=== PATIENT | male | born 1995 | race Asian ===

== ENCOUNTER 2017-03-07 20:28 | Emergency (ER) | payer OTHER ==
[~2017-03-07] VITALS: Ht 177.8 cm; Wt 78.1 kg
[2017-03-07 20:31] VITALS: TEMP 37.1; Ht 177.8 cm; Wt 78.1 kg
--- NOTE | 2017-03-07 20:42 | EMERGENCY ROOM VISIT NOTE ---
History First contact with patient: 20:34 Chief Complaint: FEVER Stated Complaint: FEVER History of Present Illness The patient is a 22 year old male who presents to the Emergency Room with complaints of fever, diarrhea, nasal congestion, cough. His fever started 4 days ago, worse at night, associated with nasal congestion, cough (sometimes productive of yellow sputum). He denies any chest pain, abdominal pain, nausea, vomiting or shortness of breath. He is managing to eat and drink well but admits to some loss of appetite. His major concern for coming to the ER today is that fever keeps coming back. His diarrhea has been improving but His mother is a physician/surgeon in [place] and advised him to take cefuroxime (for the fever, from [place]) and ioxoprofen (from [place]), unknown doses. Came back from [place] in October, no other travel overseas. Eating just soup for the past few days as advised by his mother. Review of Systems All other systems were reviewed and otherwise negative other than HPI Past Medical/Surgical History ?emphysema Family History Diabetes Heart Disease High blood pressure Social History Smoking Status: Current Every Day Smoker (2-3 cigarettes/day, 3 years) Alcohol Use: occasionally (last weekend) Drug Use: none Housing Status: lives alone Occupation Status: [employer] student ([employer] Current/Historical Medications Scheduled Biotin (Biotin 5000), 5 MG PO DAILY Oseltamivir (Tamiflu), 75 MG PO BID Physical Exam Vital Signs Date Time Temp Pulse Resp B/P (MAP) Pulse Ox O2 Delivery O2 Flow Rate FiO2 03/07/17 20:31 37.1 97 16 138/83 98 Room Air Physical Exam General Appearance: WD/WN, no apparent distress Head: normocephalic, atraumatic Eyes: normal inspection (pupils equal), EOMI ENT: normal ENT inspection, hearing grossly normal, TMs normal, pharynx normal Neck: supple, no JVD Respiratory/Chest: chest non-tender, lungs clear, normal breath sounds, no respiratory distress, no accessory muscle use Cardiovascular: regular rate, rhythm, no edema, no murmur, normal peripheral pulses Abdomen / GI: normal bowel sounds, non tender, soft Back: no CVA tenderness Extremities: no calf tenderness, normal capillary refill, no pedal edema 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 FINDINGS: The lungs are clear. Cardiac silhouette is normal in size. No pleural effusions. No pneumothorax. IMPRESSION: No acute process. Electronically signed by: Timoteo Rizzo M.D. 03/07/2017 9:33 PM Dictated Date/Time: 03/07/2017 9:30 PM Laboratory Results 03/07/17 21:05 Red Blood Count 5.61, Mean Corpuscular Volume 84.7, Mean Corpuscular Hemoglobin 30.3, Mean Corpuscular Hemoglobin Concent 35.8, Mean Platelet Volume 9.5, Neutrophils (%) (Auto) 44.1, Lymphocytes (%) (Auto) 39.3, Monocytes (%) (Auto) 15.2, Eosinophils (%) (Auto) 1.0, Basophils (%) (Auto) 0.2, Neutrophils # (Auto ) 1.79, Lymphocytes # (Auto) 1.60, Monocytes # (Auto) 0.62, Eosinophils # (Auto ) 0.04, Basophils # (Auto) 0.01 03/07/17 21:05 Test 03/07/17 21:05 White Blood Count 4.07 K/uL (4.8-10.8) Red Blood Count 5.61 M/uL (4.7-6.1) Hemoglobin 17.0 g/dL (14.0-18.0) Hematocrit 47.5 % (42-52) Mean Corpuscular Volume 84.7 fL (80-100) Mean Corpuscular Hemoglobin 30.3 pg (25-34) Mean Corpuscular Hemoglobin Concent 35.8 g/dl (32-36) Platelet Count 118 K/uL (130-400) Mean Platelet Volume 9.5 fL (7.4-10.4) Neutrophils (%) (Auto) 44.1 % Lymphocytes (%) (Auto) 39.3 % Monocytes (%) (Auto) 15.2 % Eosinophils (%) (Auto) 1.0 % Basophils (%) (Auto) 0.2 % Neutrophils # (Auto) 1.79 K/uL (1.4-6.5) Lymphocytes # (Auto) 1.60 K/uL (1.2-3.4) Monocytes # (Auto) 0.62 K/uL (0.11-0.59) Eosinophils # (Auto) 0.04 K/uL (0-0.5) Basophils # (Auto) 0.01 K/uL (0-0.2) RDW Standard Deviation 36.9 fL (36.4-46.3) RDW Coefficient of Variation 12.0 % (11.5-14.5) Immature Granulocyte % (Auto) 0.2 % Immature Granulocyte # (Auto) 0.01 K/uL (0.00-0.02) Anion Gap 5.0 mmol/L (3-11) Est Creatinine Clear Calc Drug Dose 120.7 ml/min Estimated GFR () 124.1 Estimated GFR (Non- 107.1 BUN/Creatinine Ratio 8.7 (10-20) Calcium Level 8.8 mg/dl (8.5-10.1) Total Bilirubin 0.5 mg/dl (0.2-1) Aspartate Amino Transf (AST/SGOT) 19 U/L (15-37) Alanine Aminotransferase (ALT/SGPT) 16 U/L (12-78) Alkaline Phosphatase 68 U/L (45-117) Total Protein 7.6 gm/dl (6.4-8.2) Albumin 4.2 gm/dl (3.4-5.0) Globulin 3.4 gm/dl (2.5-4.0) Albumin/Globulin Ratio 1.2 (0.9-2) Influenza Type A Antigen Neg for Influ A (NEG) Influenza Type B Antigen POS for Influ B (NEG) Medications Administered Medications (Trade) Dose Ordered Sig/Natasha Route Start Time Stop Time Status Last Admin Dose Admin Oseltamivir Phosphate (Tamiflu Cap) 75 mg NOW STAT PO 03/07/17 22:01 03/07/17 22:02 DC 03/07/17 22:08 75 MG ED Course 20:46 Complete history and physical was performed by myself 21:15 The patient was discussed with Dr Greenberg who separately performed history and examination - advised adding norovirus and giardia to stool analysis 21:35 The patient was reassessed with no significant change in his symptoms 22:00 The patient was reassessed and discussed positive influenza B. Discussed diagnosis, benefits and risks of tamiflu and patient wished requested to take this medication. THe patient was discharged in a stable condition Medical Decision Prior records/ancillary studies reviewed. Triage Nursing notes reviewed. Additional history obtained from patient. The patient's history was concerning for fever. Differential diagnosis: Etiologies such as viral syndrome, otitis, pharyngitis, pneumonia, influenza, meningitis, urinary tract infection, sepsis, bacteremia, as well as others were entertained. Physical examination: No source identified on exam Diagnostics interpreted by me: The labs revealed were essentially unremarkable Imaging studies: CXR was negative Influenza B was positive This appears to be consistent with Influenza. By the evaluation outlined above emergent etiologies such as otitis, pharyngitis, bacterial pneumonia, meningitis , urinary tract infection, sepsis, bacteremia, as well as others were deemed relatively unlikely. The patient was informed about the findings as listed above. All questions were answered and he was pleased with the treatment. Return instructions were outlined and the patient was discharged in stable condition. He was advised to stop smoking. If ongoing watery diarrhea he was advised to drop off a sample and a script was given for stool culture, Giardia, Norovirus and c. diff. Outpatient prescription management: Tamiflu 75mg BID for total 5 days Referral: The patient was referred back to their primary care physician for follow-up if not improving in 5 days. Medication Reconcilliation Current Medication List: was personally reviewed by me Blood Pressure Screening Patient's blood pressure: Elevated blood pressure Blood pressure disposition: Elevated BP felt to be situational, Referred to PCP Impression Primary Impression: Influenza Departure Information Dispostion Home / Self-Care Condition GOOD Prescriptions Oseltamivir (Tamiflu) 75 Mg Cap 75 MG PO BID for 5 Days, #9 CAP Prov: Chace Jean MD 03/07/17 Patient Instructions My [facility] Additional Instructions Take Ibuprofen (400mg three times/day) or Tylenol (1000mg three times/day) as needed for pain, discomfort, and fevers. Drink more clear liquids for the next 3 to 4 days. If you have an increasing pain, discomfort, fevers, or difficulty swallowing, difficulty breathing, chest pain, recurrent vomiting or diarrhea, come back to the Emergency Department. Tamiflu is prescribed to help reduce the duration of your symptoms. School Instructions Return To School: 5 days Resident Tracking Resident Involvement: Resident Care Provided Care Provided: Adult ED
--- NOTE | 2017-03-07 21:20 | EMERGENCY ROOM VISIT NOTE ---
ED Visit Note First contact with patient: 20:38 Resident Physician Supervision Note: I interviewed and examined the patient. Discussed with Dr. Jean and agree with findings and plan as documented in the note. Documented By: Singh Greenberg Vital Signs Date Time Temp Pulse Resp B/P (MAP) Pulse Ox O2 Delivery O2 Flow Rate FiO2 03/07/17 20:31 37.1 97 16 138/83 98 Room Air Laboratory Results Test 03/07/17 21:05 Departure Information Referrals No Doctor, Assigned (PCP) Patient Instructions My [facility]
[2017-03-07 21:21] LABS: BASO % 0.2 %; BASO ABS # 0.01 K/uL (0-0.2); COMPLETE YES; HEMATOCRIT 47.5 % (42-52); IG% 0.2 %; LYMPH % 39.3 %; MEAN CELL VOLUME 84.7 fL (80-100); MEAN CORPUSCULAR HEMOGLOBIN 30.3 pg (25-34); MEAN CORPUSCULAR HGB CONC 35.8 g/dl (32-36); MEAN PLATELET VOLUME 9.5 fL (7.4-10.4); MONO % 15.2 %; NEUT % 44.1 %; PLATELET COUNT 118 K/uL (130-400); RED BLOOD COUNT 5.61 M/uL (4.7-6.1); WHITE BLOOD COUNT 4.07 K/uL (4.8-10.8)
[2017-03-07] MEDS ORDERED: BIOTCAP2 PO (21:34)
--- NOTE | 2017-03-07 21:34 | DIAGNOSTIC IMAGING REPORT ---
CHEST 2 VIEWS ROUTINE HISTORY: fever, cough COMPARISON: None. FINDINGS: The lungs are clear. Cardiac silhouette is normal in size. No pleural effusions. No pneumothorax. IMPRESSION: No acute process. Electronically signed by: Timoteo Rizzo M.D. 03/07/2017 9:33 PM Dictated Date/Time: 03/07/2017 9:30 PM
[2017-03-07 21:40] LABS: BUN/CREATININE RATIO 8.7 (10-20); CALCIUM 8.8 mg/dl (8.5-10.1); POTASSIUM 3.5 mmol/L (3.5-5.1)
[2017-03-07 21:43] LABS: ALB/GLOB RATIO 1.2 (0.9-2)
[2017-03-07] MEDS ORDERED: OSELTAMIVIR PHOSPHATE 75 MG CAP PO STA (22:01)
[2017-03-07] MEDS ORDERED: OSEL75CA12 PO (22:09)
[2017-03-07 22:28] VITALS: BP 167/105; PULSE 93; O2SAT 98
== END 2017-03-07 22:29 | disposition home or self-care (01) ==
LOC: C.EDB 20:29 → C.EDA 22:29
DX: J11.1 Influenza due to unidentified influenza virus with other respiratory manifestations (principal); F17.200 Nicotine dependence, unspecified, uncomplicated; Z83.3 Family history of diabetes mellitus